=== PATIENT | female | born 1930 | race Caucasian/White ===

== ENCOUNTER 2017-11-12 18:40 | Emergency (ER) | payer MEDICARE, BC ==
--- NOTE | 2017-11-12 21:10 | RAD ---
PORTABLE AP CHEST RADIOGRAPH: Date: 11-12-17 History: Cough. Cold like symptoms since Sunday with worsening of symptoms yesterday. Productive co ugh. Comparison: 01-27-17 FINDINGS: Cardiac silhouette and pulmonary vasculature are within normal limits for portable technique of the luciano. Thoracic aorta is ectatic. There is minimal symmetric biapical pleural thickening, some of whic h is partially calcified. Lungs are otherwise clear. There has been no interval change when compared to the prior exam. IMPRESSION: No acute cardiopulmonary process. POS: [facility]
== END 2017-11-12 19:40 | disposition home or self-care (01) ==
LOC: SCSER 18:40
DX: J06.9 Acute upper respiratory infection, unspecified (principal); J45.909 Unspecified asthma, uncomplicated; I25.2 Old myocardial infarction; F41.9 Anxiety disorder, unspecified; F03.90 Unspecified dementia, unspecified severity, without behavioral disturbance, psychotic disturbance, mood disturbance, and anxiety; Z79.899 Other long term (current) drug therapy
CPT/HCPCS: 71046